=== PATIENT | male | born 1945 | race Caucasian/White ===

== ENCOUNTER → 2017-11-07 | Outpatient (CLI) | payer MEDICARE ==
--- NOTE | 2017-11-07 11:53 | US ---
EXAMINATION TYPE: US carotid duplex BILAT DATE OF EXAM: 11/07/2017 COMPARISON: NONE CLINICAL HISTORY: I25.10 coronary artery disease. EXAM MEASUREMENTS: RIGHT: Peak Systolic Velocity (PSV) cm/sec ----- Right CCA: 87.5 ----- Right ICA: 84.2 ----- Right ECA: 170.7 ICA/CCA ratio: 1.0 RIGHT: End Diastole cm/sec ----- Right CCA: 28.1 ----- Right ICA: 24.8 ----- Right ECA: 34.7 LEFT: Peak Systolic Velocity (PSV) cm/sec ----- Left CCA: 81.4 ----- Left ICA: 90.5 ----- Left ECA: 95.6 ICA/CCA ratio: 1.1 LEFT: End Diastole cm/sec ----- Left CCA: 21.9 ----- Left ICA: 24.5 ----- Left ECA: 21.9 VERTEBRALS (direction of flow): Right Vertebral: Antegrade Left Vertebral: Antegrade Rhythm: Arrhythmia no hemodynamic stenosis no atherosclerotic changes Elevated Right ECA Grayscale images show mild peripheral plaque along course of distal common carotid artery bilaterally . No significant focal plaque at carotid bulb level is seen. Velocity measurements and ratios remain within normal limits bilaterally. IMPRESSION: No hemodynamic significant stenosis is seen in either internal carotid artery. Technologi st states there is arrhythmia during real-time scanning, if this is not known finding further investi gation with Holter monitoring would be advised.
== END | disposition home or self-care (01) ==
LOC: RADUSWWP 10:17
PROVIDERS: ATTEND Family Medicine
DX: I25.10 Atherosclerotic heart disease of native coronary artery without angina pectoris (principal)
CPT/HCPCS: 93880

== ENCOUNTER → 2017-12-05 | Outpatient (CLI) | payer MEDICARE ==
--- NOTE | 2017-12-05 09:47 | ECHOF ---
Referral Reason:I65.21 Cartoid Artery Stenosis MEASUREMENTS -------- HEIGHT: 167.6 cm WEIGHT: 84.4 kg BP: 140/67 IVSd: 1.4 cm (0.6 - 1.1) LVIDd: 4.3 cm (3.9 - 5.3) LVPWd: 1.3 cm (0.6 - 1.1) IVSs: 2.1 cm LVIDs: 1.3 cm LVPWs: 1.9 cm LAESV Index (A-L): 25.14 ml/m Ao Diam: 3.3 cm (2.0 - 3.7) AV Cusp: 2.2 cm (1.5 - 2.6) LA Diam: 3.6 cm (2.7 - 3.8) EPSS: 0.2 cm MV E Ronnie: 0.70 m/s MV DecT: 238 ms MV A Ronnie: 0.78 m/s MV E/A Ratio: 0.89 RAP: 5.00 mmHg RVSP: 34.99 mmHg MV EF SLOPE: 103.99 mm/s (70 - 150) MV EXCURSION: 2.08 cm (> 18.000) FINDINGS -------- Sinus rhythm with extra systolic beats. This was a technically good study. The left ventricular size is normal. There is mild concentric left ventricular hypertrophy. Overa ll left ventricular systolic function is normal with, an EF between 55 - 60 %. The right ventricle is normal in size and function. The left atrium is normal in size. The right atrium is normal in size. Aortic valve is trileaflet and is mildly thickened. Trace amount of aortic regurgitation. Normal appearing mitral valve. There is trace mitral regurgitation. Trace tricuspid regurgitation present. The right ventricular systolic pressure, as measured by Dopp ler, is 34.99mmHg. Trace/mild (physiologic) pulmonic regurgitation. The aortic root size is normal. Normal inferior vena cava with normal inspiratory collapse consistent with estimated right atrial pre ssure of 5 mmHg. The pericardium is normal. CONCLUSIONS -------- 1. Sinus rhythm with extra systolic beats. 2. This was a technically good study. 3. The left ventricular size is normal. 4. There is mild concentric left ventricular hypertrophy. 5. Overall left ventricular systolic function is normal with, an EF between 55 - 60 %. 6. The right ventricle is normal in size and function. 7. The left atrium is normal in size. 8. The right atrium is normal in size. 9. Aortic valve is trileaflet and is mildly thickened. 10. Trace amount of aortic regurgitation. 11. Normal appearing mitral valve. 12. There is trace mitral regurgitation. 13. Trace tricuspid regurgitation present. 14. The right ventricular systolic pressure, as measured by Doppler, is 34.99mmHg. 15. Trace/mild (physiologic) pulmonic regurgitation. 16. The aortic root size is normal. 17. Normal inferior vena cava with normal inspiratory collapse consistent with estimated right atrial pressure of 5 mmHg. 18. The pericardium is normal. ANALOG CIRCUIT DESIGNER: Cristina Singh RDCS
--- NOTE | 2017-12-05 10:13 | EST ---
EXERCISE STRESS AGE: 82. SEX: M HT: 66" WT: 187 PROTOCOL: Adalberto Stress Test STAGE: 2 DURATION OF EXERCISE: 4:15 HEART RATE REST: 70 BLOOD PRESSURE REST: 154/75 MAXIMUM HEART RATE ACHIEVED: 134 MAXIMUM BLOOD PRESSURE: 206/77 85% MPHR: 127 100% MPHR: 149 METS: 5.0 INDICATIONS: Cardiac arrhythmia. CLINICAL INFORMATION: Baseline EKG shows sinus rhythm and frequent PACs. Patient exercised on Adalberto protocol for a total of 4 minutes achieving 5 METS, 90% of predicted maximum heart rate without chest pain. At peak exercise, he complained of shortness of breath. Continued to have frequent atrial ectopy. There was [address]-segment depression noted. CONCLUSION: 1. Limited exercise tolerance. 2. Abnormal stress test by EKG criteria. MMSHARONL / IJN: [id number] /
== END | disposition home or self-care (01) ==
LOC: RADECHMAIN 08:34
PROVIDERS: ATTEND Family Medicine
DX: I51.7 Cardiomegaly (principal); I35.8 Other nonrheumatic aortic valve disorders; R94.39 Abnormal result of other cardiovascular function study
CPT/HCPCS: 93017; 93306

== ENCOUNTER → 2017-12-12 | Outpatient (CLI) | payer MEDICARE ==
[~2017-12-12] MED LIST: REGADENOSON 0.4 MG/5 ML SYRINGE IV ONE
--- NOTE | 2017-12-12 12:38 | NM ---
EXAMINATION TYPE: NM stress lexiscan cardiolite DATE OF EXAM: 12/12/2017 COMPARISON: NONE HISTORY: Abnormal stress test TECHNIQUE: After the intravenous administration of 11.8 mCi Tc 99m Sestamibi - Cardiolite resting SP ECT images acquired 45 minutes post injection. The patient received 0.4mg Lexiscan, 26 mCi Tc 99m Sestamibi - Stress images obtained 30 minutes post injection FINDINGS: Review of stress and rest SPECT images demonstrates some mild decreased uptake along the inferior wal l of the left ventricle stress as compared to rest images towards the base of the heart. Gated katja sis shows normal wall motion with an estimated left ventricular ejection fraction of 62 %. IMPRESSION: Difficult to exclude pharmacologically induced left ventricular myocardial ischemia along the inferio r wall towards the base as described. A Yellow message has been communicated to Que Quintero MD via the [facility] Result system on 12/12/2017 12:36 PM, Message ID [id number].
--- NOTE | 2017-12-13 16:06 | EST ---
EXERCISE STRESS DATE OF SERVICE: 12/12/2017 AGE: 72 SEX: Male HT: 66" WT: 186 pounds. PROTOCOL: Lexiscan Cardiolite STAGE: DURATION OF EXERCISE: HEART RATE REST: 63 BLOOD PRESSURE REST: 159/74 MAXIMUM HEART RATE ACHIEVED: 81 MAXIMUM BLOOD PRESSURE: 159/74 85% MPHR: 128 100% MPHR: 150 METS: INDICATIONS: Abnormal stress test. CLINICAL INFORMATION: STRESS DATA: Pre-testing physical exam showed a heart rate of 63, pressure 159/74 mmHg. Baseline EKG showed sinus mechanism. Lexiscan in the amount of 0.4 mg was given to the patient over 15 seconds per protocol. Maximum heart rate was 81 beats per minute and maximum pressure was 159/74 mmHg. Clinically the patient did not have any symptoms and the EKG did not show any significant ST or T-wave abnormalities consistent with ischemia. CONCLUSION: 1. Non-diagnostic electrocardiogram stress testing in response to Lexiscan. 2. Please follow up on the Cardiolite portion in a separate report . MMODL / IJN: [id number] /
== END | disposition home or self-care (01) ==
LOC: RADNMMAIN 08:06
PROVIDERS: ATTEND Family Medicine
DX: R94.39 Abnormal result of other cardiovascular function study (principal)
CPT/HCPCS: 93017; 78452; A9500; J2785

== ENCOUNTER → 2019-02-14 | Outpatient (CLI) | payer MEDICARE ==
[2019-02-14 12:19] LABS: Basophils # (A) 0.1 k/uL (0-0.2); Basophils % (A) 1 %; Eosinophils # (A) 0.3 k/uL (0-0.7); Eosinophils % (A) 4 %; HCT 43.3 % (39.0-53.0); HGB 14.5 gm/dL (13.0-17.5); Lymphocytes # (A) 1.5 k/uL (1.0-4.8); Lymphocytes % (A) 23 %; MCH 30.4 pg (25.0-35.0); MCHC 33.4 g/dL (31.0-37.0); Mean Platelet Volume 7.1; Monocytes # (A) 0.4 k/uL (0-1.0); Monocytes % (A) 6 %; Neutrophils # (A) 4.4 k/uL (1.3-7.7); Neutrophils % (A) 65 %; Platelet Count 236 k/uL (150-450); RBC 4.76 m/uL (4.30-5.90); RDW 12.7 % (11.5-15.5); WBC 6.8 k/uL (3.8-10.6)
[2019-02-14 20:12] LABS: Albumin 4.4 g/dL (3.80-4.90); Anion Gap 6.4 mmol/L (4.00-12.00); Calcium 9.7 mg/dL (8.7-10.3); Carbon Dioxide 30.6 mmol/L (21.6-31.8); Globulin 2.2 g/dL (1.6-3.3); Potassium 5.1 mmol/L (3.5-5.5); Total Protein 6.6 g/dL (6.2-8.2); Uric Acid 5.9 mg/dL (3.7-8.7)
[2019-02-14 22:31] LABS: Hemoglobin A1C 5.6 % (4.0-6.0)
== END ==
LOC: LABWHC1 11:10
PROVIDERS: ATTEND Family Medicine
DX: R97.20 Elevated prostate specific antigen [PSA] (principal); I10 Essential (primary) hypertension; Z79.899 Other long term (current) drug therapy
CPT/HCPCS: 36415; 80053; 80061; 83036; 84153; 84550; 85025

== ENCOUNTER → 2021-06-23 | Outpatient (CLI) | payer MEDICARE ==
[2021-06-23 19:36] LABS: Basophils # (A) 0.06 X 10*3/uL (0.00-0.10); Basophils % (A) 0.9 %; Eosinophils # (A) 0.22 X 10*3/uL (0.04-0.35); Eosinophils % (A) 3.3 %; HCT 45.3 % (39.6-50.0); Lymphocytes % (A) 34.9 %; MCH 31.4 pg (27.0-32.0); MCHC 33.1 g/dL (32.0-37.0); MCV 94.8 fL (80.0-97.0); Mean Platelet Volume 10.7 fL (9.5-12.2); Monocytes # (A) 0.55 X 10*3/uL (0.20-1.00); Monocytes % (A) 8.3 %; Neutrophils # (A) 3.44 X 10*3/uL (1.80-7.70); Neutrophils % (A) 52.3 %; Platelet Count 230 X 10*3/uL (140-440); RBC 4.78 X 10*6/uL (4.40-5.60); RDW 11.9 % (11.5-14.5); WBC 6.59 X 10*3/uL (4.50-10.00)
[2021-06-23 22:29] LABS: African American GFR (CKD) 85.6 (60.0-200.0); Albumin 4.5 g/dL (3.80-4.90); Albumin/Globulin Ratio 1.61 (1.60-3.17); Anion Gap 8.1 mmol/L (4.00-12.00); Calcium 9.8 mg/dL (8.7-10.3); Carbon Dioxide 27.9 mmol/L (21.6-31.8); Chol/HDL Ratio 2.51; Globulin 2.8 g/dL (1.6-3.3); LDL Cholesterol,Calculated 61.8 mg/dL (0.0-131.0); Non-African American GFR(CKD) 73.8 (60.0-200.0); Potassium 4.8 mmol/L (3.5-5.5); Total Bilirubin 1.2 mg/dL (0.2-1.2); Total Protein 7.3 g/dL (6.2-8.2); VLDL Calculation 24.2 mg/dL (5.00-40.00)
[2021-06-23 22:35] LABS: Hemoglobin A1C 5.6 % (4.0-6.0)
[2021-06-23 22:36] LABS: Prostate Specific Antigen 0.8 ng/mL (0.0-6.5)
== END | disposition home or self-care (01) ==
LOC: LABWHC1 11:40
PROVIDERS: ATTEND Family Medicine
DX: Z20.822 Contact with and (suspected) exposure to COVID-19 (principal); I10 Essential (primary) hypertension; R97.20 Elevated prostate specific antigen [PSA]; Z79.899 Other long term (current) drug therapy; B89 Unspecified parasitic disease
CPT/HCPCS: 36415; 80053; 80061; 83036; 84153; 84443; 85025; 86769

== ENCOUNTER → 2022-08-29 | Outpatient (CLI) | payer MEDICARE ==
[2022-08-29 18:49] LABS: Basophils # (A) 0.06 X 10*3/uL (0.00-0.10); Basophils % (A) 0.9 %; Eosinophils # (A) 0.21 X 10*3/uL (0.04-0.35); Eosinophils % (A) 3.3 %; HCT 42.9 % (39.6-50.0); HGB 14.2 g/dL (13.0-17.0); Immature Grans, Automated 0.2 %; Lymphocytes # (A) 2.17 X 10*3/uL (0.90-5.00); MCH 30.9 pg (27.0-32.0); MCHC 33.1 g/dL (32.0-37.0); MCV 93.5 fL (80.0-97.0); Mean Platelet Volume 10.6 fL (9.5-12.2); Monocytes # (A) 0.59 X 10*3/uL (0.20-1.00); Monocytes % (A) 9.2 %; NRBC Per 100 WBC 0 /100 WBCS (0.0-0.0); Neutrophils # (A) 3.34 X 10*3/uL (1.80-7.70); Neutrophils % (A) 52.4 %; Platelet Count 211 X 10*3/uL (140-440); RBC 4.59 X 10*6/uL (4.40-5.60); RDW 12.2 % (11.5-14.5); WBC 6.38 X 10*3/uL (4.50-10.00)
[2022-08-29 19:10] LABS: ALT 32 U/L (10-49); AST 25 U/L (14-35); African American GFR (CKD) 86.6 (60.0-200.0); Albumin 4.3 g/dL (3.8-4.9); Albumin/Globulin Ratio 1.75 (1.60-3.17); Alkaline Phosphatase 75 U/L (41-126); BUN/Creat Ratio 13.11 Ratio (12.00-20.00); Blood Urea Nitrogen 12.9 mg/dL (9.0-27.0); Calcium 9.8 mg/dL (8.7-10.3); Carbon Dioxide 29.9 mmol/L (20.0-27.5); Chloride 103 mmol/L (96-109); Globulin 2.4 g/dL (1.6-3.3); Glucose 104 mg/dL (70-110); LDL Cholesterol,Calculated 54.7 mg/dL (0.0-131.0); Non-African American GFR(CKD) 74.7 (60.0-200.0); Potassium 4.8 mmol/L (3.5-5.5); Sodium 142 mmol/L (135-145); Total Protein 6.7 g/dL (6.2-8.2)
== END | disposition home or self-care (01) ==
LOC: LABWHC1 13:07
PROVIDERS: ATTEND Family Medicine
DX: I10 Essential (primary) hypertension (principal); E11.9 Type 2 diabetes mellitus without complications; Z79.899 Other long term (current) drug therapy; R97.20 Elevated prostate specific antigen [PSA]
CPT/HCPCS: 36415; 80053; 80061; 83036; 83880; 84153; 84443; 85025

== ENCOUNTER → 2023-08-06 | Outpatient (CLI) | payer MEDICARE ==
[2023-08-06 21:28] LABS: Basophils # (A) 0.07 X 10*3/uL (0.00-0.10); Eosinophils # (A) 0.24 X 10*3/uL (0.04-0.35); Eosinophils % (A) 3.5 %; HCT 45.8 % (39.6-50.0); HGB 15.4 d/dL (13.0-17.0); Lymphocytes % (A) 31.7 %; MCH 31.8 pg (27.0-32.0); MCHC 33.6 d/dL (32.0-37.0); MCV 94.4 FL (80.0-97.0); Mean Platelet Volume 10.7 FL (9.5-12.2); Monocytes # (A) 0.57 X 10*3/uL (0.20-1.00); Monocytes % (A) 8.2 %; NRBC Per 100 WBC 0 X 10*3/uL (0.00-0.01); Neutrophils # (A) 3.84 X 10*3/uL (1.80-7.70); Neutrophils % (A) 55.2 %; Platelet Count 218 X 10*3/uL (140-440); RBC 4.85 X 10*6/uL (4.40-5.60); RDW 12.2 % (11.5-14.5); WBC 6.95 X 10*3/uL (4.50-10.00)
[2023-08-06 22:07] LABS: ALT 30 U/L (10-49); AST 25 U/L (14-35); Albumin 4.6 d/dL (3.8-4.9); Albumin/Globulin Ratio 1.84 Ratio (1.60-3.17); Alkaline Phosphatase 74 U/L (41-126); BUN/Creat Ratio 13.08 Ratio (12.00-20.00); Blood Urea Nitrogen 15.7 mg/dL (9.0-27.0); Calcium 10.1 mg/dL (8.7-10.3); Carbon Dioxide 29.5 mmol/L (21.6-31.8); Chloride 102 mmol/L (96-109); Chol/HDL Ratio 2.29 Ratio; Globulin 2.5 d/dL (1.6-3.3); Glucose 100 mg/dL (70-110); LDL Cholesterol,Calculated 61.9 mg/dL (0.0-131.0); Sodium 140 mmol/L (135-145); Total Bilirubin 0.9 mg/dL (0.3-1.2); Total Protein 7.1 d/dL (6.2-8.2)
== END | disposition home or self-care (01) ==
LOC: LABWHC1 13:02
PROVIDERS: ATTEND Family Medicine
DX: I10 Essential (primary) hypertension (principal); E11.9 Type 2 diabetes mellitus without complications; Z79.899 Other long term (current) drug therapy
CPT/HCPCS: 36415; 80053; 80061; 82043; 82570; 83036; 84153; 84443; 85025

== ENCOUNTER → 2024-04-23 | Outpatient (CLI) | payer MEDICARE ==
[2024-04-23 19:44] LABS: Blood Urea Nitrogen 20.8 mg/dL (9.0-27.0); Carbon Dioxide 25.5 mmol/L (21.6-31.8); Chloride 103 mmol/L (96-109); Potassium 4.5 mmol/L (3.5-5.5); Prostate Specific Antigen 1.03 ng/mL (0.000-6.500); Sodium 141 mmol/L (135-145); Uric Acid 6.9 mg/dL (3.7-8.7)
== END | disposition home or self-care (01) ==
LOC: LABWHC1 13:23
PROVIDERS: ATTEND Family Medicine
DX: I10 Essential (primary) hypertension (principal); M10.9 Gout, unspecified
CPT/HCPCS: 36415; 80051; 82565; 84153; 84520; 84550

== ENCOUNTER → 2024-04-29 | Outpatient (CLI) | payer MEDICARE ==
--- NOTE | 2024-04-29 13:26 | CA ---
Exercise Stress Test Report Name: Que Haines Exam Date: 04/29/2024 11:18 Exam Location: [facility] Stress Ht (in): 65 Wt (lb): 171 BSA: 1.85 Ordering Phys: Juan Strauss MD Referring Phys: Juan Strauss MD Technologist: Nicole Garcia RDCS Age: 78 Gender: M : 1945 Procedure CPT: Indications: CAD ICD-10 Codes: Patient History: HTN, CHOL, AND FAMILY HX Medications: SEE LIST Meds past 24 hrs: Pretest Chest Pain: STRESS TEST Adalberto Protocol Exercise Duration (min:sec): 03:[address] Depressions (mm): Angina Score: Hinton Score: Resting HR (bpm): 84 Peak HR (bpm): 135 Resting BP (mmHg): 149 / 83 Peak BP (mmHg): 194 / 71 MPHR: 143 Target HR: 122 % MPHR: 94 METS: 4.7 Total Dose: Peak Dose: Atropine: Double Product: 33066 BP Response: Stress Termination: Reached target heart rate Stress Symptoms: No chest pain or symptoms Stress Summary: ECG ANALYSIS Resting ECG: Stress ECG: CONCLUSIONS Poor exercise capacity on a Adalberto protocol of 3 minutes only Peak heart rate 134 beats minute Peak blood pressure 187/66 mmHg No ECG evidence for ischemia at this very low workload level Frequent PACs Impression The only meaningful interpretation from the stress test is that this patient's exercise capacity is limited Would recommend pharmacologic stress test to look for ischemia if clinically appropriate Dr. Tre Rivera MD (Electronically Signed) Final Date: 29 April 2024 13:25
== END | disposition home or self-care (01) ==
LOC: RADNMMAIN 10:33
PROVIDERS: ATTEND Internal Medicine Cardiovascular Disease
DX: I25.10 Atherosclerotic heart disease of native coronary artery without angina pectoris (principal); I10 Essential (primary) hypertension; E78.00 Pure hypercholesterolemia, unspecified; Z82.49 Family history of ischemic heart disease and other diseases of the circulatory system
CPT/HCPCS: 93017

== ENCOUNTER → 2024-10-28 | Outpatient (CLI) | payer MEDICARE ==
[2024-10-28 15:56] LABS: Basophils # (A) 0.07 X 10*3/uL (0.00-0.10); Basophils % (A) 0.9 %; Eosinophils % (A) 4.1 %; HCT 43.4 % (39.6-50.0); HGB 14.5 g/dL (13.0-17.0); Lymphocytes # (A) 1.62 X 10*3/uL (0.90-5.00); MCH 31.5 pg (27.0-32.0); MCHC 33.4 g/dL (32.0-37.0); MCV 94.1 FL (80.0-97.0); Mean Platelet Volume 10.3 FL (9.5-12.2); Monocytes # (A) 0.66 X 10*3/uL (0.20-1.00); Monocytes % (A) 8.9 %; NRBC Per 100 WBC 0 X 10*3/uL (0.00-0.01); Neutrophils # (A) 4.71 X 10*3/uL (1.80-7.70); Neutrophils % (A) 63.8 %; Platelet Count 220 X 10*3/uL (140-440); RBC 4.61 X 10*6/uL (4.40-5.60); RDW 12.1 % (11.5-14.5); WBC 7.38 X 10*3/uL (4.50-10.00)
[2024-10-28 16:00] LABS: BUN/Creat Ratio 12.83 Ratio (12.00-20.00); Blood Urea Nitrogen 15.4 mg/dL (9.0-27.0); Chloride 103 mmol/L (96-109); Chol/HDL Ratio 2.05 Ratio; Glucose 101 mg/dL (70-110); LDL Cholesterol,Calculated 55.3 mg/dL (0.0-131.0); Potassium 4.7 mmol/L (3.5-5.5); Sodium 140 mmol/L (135-145)
[2024-10-28 16:01] LABS: ALT 31 U/L (10-49); AST 29 U/L (14-35); Albumin 4.3 g/dL (3.8-4.9); Albumin/Globulin Ratio 1.87 Ratio (1.60-3.17); Alkaline Phosphatase 76 U/L (41-126); Calcium 9.7 mg/dL (8.7-10.3); Carbon Dioxide 28.1 mmol/L (21.6-31.8); Globulin 2.3 g/dL (1.6-3.3); Prostate Specific Antigen 1.38 ng/mL (0.000-6.500); Total Bilirubin 1.1 mg/dL (0.3-1.2); Total Protein 6.6 g/dL (6.2-8.2)
[2024-10-28 22:44] LABS: Urine Creatinine 71.8 mg/dL (39.0-259.0)
== END | disposition home or self-care (01) ==
LOC: LABWHC1 11:02
PROVIDERS: ATTEND Family Medicine
DX: E11.9 Type 2 diabetes mellitus without complications (principal); R97.20 Elevated prostate specific antigen [PSA]; Z79.899 Other long term (current) drug therapy
CPT/HCPCS: 36415; 80053; 80061; 82043; 82570; 83036; 84153; 84443; 85025